=== PATIENT | female | born 1985 | race African-American/Black ===

== ENCOUNTER 2016-10-24 06:07 | Emergency (ER) | payer OTHER ==
[~2016-10-24] VITALS: Ht 162.6 cm; Wt 116.2 kg
[~2016-10-24 06:07] MED LIST: OMEP20TA39 PO
[2016-10-24 06:10] VITALS: BP 111/80; PULSE 87; RESP 18; TEMP 99.3; O2SAT 100
[2016-10-24] MEDS ORDERED: NORE-43 PO (06:30)
[2016-10-24] MEDS ORDERED: OMEP40CA2 PO (06:30)
[2016-10-24] MEDS ORDERED: SODIUM CHLOR 0.9% 1000 ML INJ 1,000 ML IV SCH (07:13)
[2016-10-24] MEDS ORDERED: LIDOCAINE VISCOUS 2% SOLN 15 ML UDC PO ONE (07:15)
[2016-10-24] MEDS ORDERED: ALUMINUM/MAGNESIUM/SIMETH 30 ML CUP PO ONE (07:15)
[2016-10-24] MEDS ORDERED: SODIUM CHLORIDE 0.9% FLUSH 5 ML FLUSH IVF PRN (07:15)
[2016-10-24] MEDS ORDERED: PANTOPRAZOLE SODIUM 40 MG VIAL IVP ONE (07:15)
[2016-10-24] MEDS ORDERED: DICYCLOMINE HCL 10 MG CAP PO ONE (07:15)
[2016-10-24 07:30] VITALS: O2SAT 100
[2016-10-24 07:34] LABS: BASOPHIL # 0.1 TH/MM3 (0-0.2); BASOPHIL % 1.1 % (0.0-2.0); EOSINOPHIL # 0.1 TH/MM3 (0-0.4); EOSINOPHIL % 1.3 % (0.0-4.0); HEMATOCRIT 38.8 % (35.0-46.0); LYMPH % 42.7 % (9.0-44.0); LYMPHOCYTE # 3.5 TH/MM3 (1.0-4.8); MEAN CELL VOLUME 82.1 FL (80.0-100.0); MEAN CORPUSCULAR HEMOGLOBIN 26.2 PG (27.0-34.0); MEAN CORPUSCULAR HGB CONC 31.9 % (32.0-36.0); NEUT % 47.9 % (16.0-70.0); PLATELET COUNT 341 TH/MM3 (150-450); RED BLOOD COUNT 4.73 MIL/MM3 (4.00-5.30); RED CELL DISTRIBUTION WIDTH 13.6 % (11.6-17.2); WHITE BLOOD COUNT 8.3 TH/MM3 (4.0-11.0)
[2016-10-24 07:34] LABS: BLOOD, URINE NEG (NEG); GLUCOSE,URINE NEG (NEG); KETONE, URINE NEG (NEG); NITRITE,URINE NEG (NEG)
[2016-10-24 07:36] LABS: HEMO FLAGS DIFF FINAL
--- NOTE | 2016-10-24 07:42 | PD ---
HPI Chief Complaint: Abdominal Pain Time Seen by Provider: 07:04 Travel History International Travel<30 days: No Contact w/Intl Traveler<30days: No Traveled to known affect area: No History of Present Illness HPI Patient is a 30 year old female complaining of abdominal pain that started yesterday. She has been here twice for the same thing and has seen her doctor. She was told by her PCP that it was GERD and she has been taking Omeprazole. She localizes the pain to the middle of her abdomen. She says the pain sometimes seems to go through to her back. She reports eating a hot dog yesterday around the time the pain started. She denies nausea or vomiting. She says her last bowel movement was Monday and was normal. She denies fever , but has had chills. PFSH Past Medical History Diminished Hearing: No Headaches: Yes Tetanus Vaccination: < 5 Years Influenza Vaccination: No ?: Not LMP: 10/12/16 Menopausal: No : 2 Para: 1 Past Surgical History Gynecologic Surgery: Yes (leep 2002) Social History Alcohol Use: No Tobacco Use: No Substance Use: No Allergies-Medications (Allergen,Severity, Reaction): Coded Allergies: No Known Allergies (Verified , 10/24/16) Reported Meds & Prescriptions Reported Meds & Active Scripts Active Macrobid (Nitrofurantoin Monoh/Nitrofur Macro) 100 Mg Cap 100 Mg PO BID 5 Days Reported Microgestin Fe 1/20 (Norethindrone-Ethinyl Estradiol-Fe) 1-20 Mg-Mcg Tab 1 Tab PO DAILY Omeprazole 40 Mg Cap 40 Mg PO DAILY Review of Systems Except as stated in HPI: all other systems reviewed are Neg General / Constitutional: Positive: Chills, No: Fever HENT: No: Headaches, Lightheadedness Cardiovascular: No: Chest Pain or Discomfort Respiratory: No: Shortness of Breath Gastrointestinal: Positive: Abdominal Pain, No: Nausea, Vomiting Genitourinary: No: Dysuria, Discharge Skin: No Rash, No Change in Pigmentation Neurologic: No: Weakness, Dizziness Physical Exam Narrative GENERAL: Awake and alert in no acute distress. SKIN: Warm and dry. HEAD: Atraumatic. Normocephalic. EYES: Pupils equal and round. No scleral icterus. . ENT: Mucous membranes pink and moist. NECK: Trachea midline. No JVD. CARDIOVASCULAR: Regular rate and rhythm. No murmur appreciated. RESPIRATORY: No accessory muscle use. Clear to auscultation. Breath sounds equal bilaterally. GASTROINTESTINAL: Abdomen soft, nondistended. Tender to palpation of the mid epigastric area. No rebound or guarding. No CVA tenderness. MUSCULOSKELETAL: No obvious deformities. No clubbing. No cyanosis. No edema. NEUROLOGICAL: Awake and alert. No obvious cranial nerve deficits. Motor grossly within normal limits. Normal speech. PSYCHIATRIC: Appropriate mood and affect; insight and judgment normal. Data Data Last Documented VS Vital Signs Date Time Temp Pulse Resp B/P Pulse Ox O2 Delivery O2 Flow Rate FiO2 10/24/16 09:00 67 14 115/67 100 Room Air 10/24/16 06:10 99.3 Orders Basic Metabolic Panel (Bmp) (10/24/16 07:13) Complete Blood Count With Diff (10/24/16 07:13) Lipase (10/24/16 07:13) Urinalysis - C+S If Indicated (10/24/16 07:13) Ua Includes Microscopic (10/24/16 07:13) Iv Access Insert/Monitor (10/24/16 07:13) Ecg Monitoring (10/24/16 07:13) Oximetry (10/24/16 07:13) Pantoprazole Inj (Protonix Inj) (10/24/16 07:15) Sodium Chlor 0.9% 1000 Ml Inj (Ns 1000 M (10/24/16 07:13) Sodium Chloride 0.9% Flush (Ns Flush) (10/24/16 07:15) Dicyclomine (Bentyl) (10/24/16 07:15) Al-Mag Hy-Si 40-40-4 Mg/Ml Liq (Mag-Al P (10/24/16 07:15) Lidocaine 2% Viscous (Xylocaine 2% Visco (10/24/16 07:15) Ed Urine Pregnancytest Poc (10/24/16 07:13) Hepatic Functional Panel (10/24/16 06:30) Urine Culture (10/24/16 06:20) Labs Laboratory Tests Test 10/24/16 10/24/16 06:20 06:30 Urine Collection Type CLEAN CATCH Urine Color YELLOW Urine Turbidity SLIGHT Urine pH 6.0 Urine Specific Lyman 1.027 Urine Protein NEG mg/dL Urine Glucose (UA) NEG mg/dL Urine Ketones NEG mg/dL Urine Occult Blood NEG Urine Nitrite NEG Urine Bilirubin NEG Urine Leukocyte Esterase TRACE Urine WBC 3-5 /hpf Urine Squamous Epithelial > 8 /hpf Cells Urine Bacteria MANY /hpf Microscopic Urinalysis Comment CULTURE INDICATED Urine Collection Time 06:20 White Blood Count 8.3 TH/MM3 Red Blood Count 4.73 MIL/MM3 Hemoglobin 12.4 GM/DL Hematocrit 38.8 % Mean Corpuscular Volume 82.1 FL Mean Corpuscular Hemoglobin 26.2 PG Mean Corpuscular Hemoglobin 31.9 % Concent Red Cell Distribution Width 13.6 % Platelet Count 341 TH/MM3 Mean Platelet Volume 9.2 FL Neutrophils (%) (Auto) 47.9 % Lymphocytes (%) (Auto) 42.7 % Monocytes (%) (Auto) 7.0 % Eosinophils (%) (Auto) 1.3 % Basophils (%) (Auto) 1.1 % Neutrophils # (Auto) 4.0 TH/MM3 Lymphocytes # (Auto) 3.5 TH/MM3 Monocytes # (Auto) 0.6 TH/MM3 Eosinophils # (Auto) 0.1 TH/MM3 Basophils # (Auto) 0.1 TH/MM3 CBC Comment DIFF FINAL Differential Comment Sodium Level 142 MEQ/L Potassium Level 4.2 MEQ/L Chloride Level 110 MEQ/L Carbon Dioxide Level 25.1 MEQ/L Anion Gap 7 MEQ/L Blood Urea Nitrogen 8 MG/DL Creatinine 0.84 MG/DL Estimat Glomerular Filtration 95 ML/MIN Rate Random Glucose 86 MG/DL Calcium Level 8.8 MG/DL Total Bilirubin 0.2 MG/DL Direct Bilirubin 0.1 MG/DL Indirect Bilirubin 0.1 MG/DL Aspartate Amino Transf 17 U/L (AST/SGOT) Alanine Aminotransferase 21 U/L (ALT/SGPT) Alkaline Phosphatase 89 U/L Total Protein 7.6 GM/DL Albumin 3.3 GM/DL Lipase 123 U/L [facility] Medical Decision Making Medical Screen Exam Complete: Yes Emergency Medical Condition: Yes Medical Record Reviewed: Yes Differential Diagnosis GERD versus pancreatitis versus cholecystitis versus cholelithiasis Narrative Course Patient is a 30-year-old female comes in complaining of abdominal pain. Exam shows soft abdomen, mildly tender in the epigastric area. IV established, labs sent. Labs show no acute abnormalities. Urinalysis is concerning for UTI, will be treated with antibiotics. Patient given GI cocktail, Bentyl. She reports her stomach still feels "sour." However, she feels like she is ready to go home. Patient advised follow-up with her doctor and see a sew on operator. Advised to return to the ED as needed for any worsening symptoms. Advised to avoid spicy foods, caffeine, smoking. Diagnosis Primary Impression: GERD (gastroesophageal reflux disease) Qualified Code: K21.9 - Gastroesophageal reflux disease without esophagitis Additional Impression: UTI (urinary tract infection) Qualified Code: N30.00 - Acute cystitis without hematuria Patient Instructions: Gastroesophageal Reflux Disease (ED), General Instructions, Urinary Tract Infection in Women (ED) Additional Instructions: Follow up with your doctor. Follow up with gastroenterology. Return to the ED as needed for any worsening symptoms. Scripts Nitrofurantoin Monohydrate Macrocrystals (Macrobid)100 Mg [id number] Mg PO BID 5 Days Ref 0 Prov:Madeleine Horowitz MD 10/24/16 Disposition: 01 DISCHARGE HOME Condition: Stable Madeleine Horowitz MD Oct 24, 2016 07:42 Madeleine Horowitz MD Oct 24, 2016 07:42
[2016-10-24 07:43] LABS: POTASSIUM 4.2 MEQ/L (3.5-5.1)
[2016-10-24 07:43] LABS: BACTERIA, URINE MANY /hpf; COMMENT (UR) CULTURE INDICATED; CULTURE IF INDICATED CULTURE INDICATED; METHOD OF COLLECTION CLEAN CATCH; SQUAMOUS EPITHELIAL CELL URINE > 8 /hpf (0-5); URINE COLOR YELLOW (YELLW/STRAW)
[2016-10-24 07:47] LABS: BICARBONATE 25.1 MEQ/L (21.0-32.0)
[2016-10-24 07:51] LABS: INDIRECT BILIRUBIN 0.1 MG/DL (0.0-0.8); TOTAL BILIRUBIN ADULT 0.2 MG/DL (0.2-1.0)
[2016-10-24] MEDS ORDERED: MACR100C2 PO (08:53)
[2016-10-24 09:00] VITALS: BP 115/67; PULSE 67; RESP 14; O2SAT 100
== END 2016-10-24 09:00 | disposition home or self-care (01) ==
LOC: PHED 06:07
DX: K21.9 Gastro-esophageal reflux disease without esophagitis (principal); N30.00 Acute cystitis without hematuria
CPT/HCPCS: 80048; 80076; 81001; 83690; 84703; 85025; 87086; 96361; 96374; 99284; C9113; J7030

== ENCOUNTER 2016-10-28 01:49 | Emergency (ER) | payer OTHER ==
[~2016-10-28] VITALS: Ht 157.5 cm; Wt 116.5 kg
[~2016-10-28 01:49] MED LIST changes: +MACR100C2 PO; +NORE-43 PO; -OMEP20TA39 PO; +OMEP40CA2 PO
[2016-10-28 01:53] VITALS: BP 135/92; PULSE 90; RESP 16; TEMP 99.2; O2SAT 97
[2016-10-28] MEDS ORDERED: AMOX500C PO (02:07)
--- NOTE | 2016-10-28 02:07 | PD ---
HPI Chief Complaint: ENT Complaint Time Seen by Provider: 02:03 Travel History International Travel<30 days: No Contact w/Intl Traveler<30days: No Traveled to known affect area: No History of Present Illness HPI 30-year-old female presents to the emergency department by private transportation for complaint of sore throat with difficulty swallowing and breathing. Patient complains of hoarseness that she's had since Monday. Patient has had sore throat since Monday. Patient was seen in the emergency department on Monday for epigastric pain and diagnosed with reflux esophagitis. Patient saw her primary care provider on Monday and started on amoxicillin. Patient denies fever or chills. No cough. Patient is been told that she needs to have her tonsils removed. Patient has had sinus pressure and drainage. Patient states that she was awakened from sleep with throat pain and feeling like there is something interfering with her ability to swallow. Patient denies any personal history of asthma or reactive airways disease. PFSH Past Medical History Narrative Medical headache, leep; no tobacco use; nursing notes reviewed Diminished Hearing: No Headaches: Yes LMP: 10/10/16 Menopausal: No : 2 Para: 1 Past Surgical History Gynecologic Surgery: Yes (leep 2001) Social History Alcohol Use: No Tobacco Use: No Substance Use: No Allergies-Medications (Allergen,Severity, Reaction): Coded Allergies: No Known Allergies (Verified , 10/28/16) Reported Meds & Prescriptions Reported Meds & Active Scripts Active Macrobid (Nitrofurantoin Monoh/Nitrofur Macro) 100 Mg Cap 100 Mg PO BID 5 Days Reported Amoxicillin 500 Mg Cap 500 Mg PO Q12HR Microgestin Fe 10/28 (Norethindrone-Ethinyl Estradiol-Fe) 1-20 Mg-Mcg Tab 1 Tab PO DAILY Omeprazole 40 Mg Cap 40 Mg PO DAILY Review of Systems Except as stated in HPI: all other systems reviewed are Neg General / Constitutional: No: Fever, Chills HENT: Positive: Sore Throat, No: Headaches, Congestion, Neck Pain, Masses Cardiovascular: No: Chest Pain or Discomfort Respiratory: No: Cough Gastrointestinal: No: Nausea, Vomiting Genitourinary: No: Flank Pain Musculoskeletal: No: Myalgias, Arthralgias Skin: No Rash Endocrine: No: Polyuria Hematologic/Lymphatic: No: Lymph Node Enlargement Physical Exam Narrative GENERAL: Well-developed well-nourished female in no acute distress no respiratory distress no stridor mild hoarseness SKIN: Warm and dry. HEAD: Normocephalic. EYES: No scleral icterus. No injection or drainage. ENT: Mucous membranes moist airway is patent no angioedema no soft palate swelling uvula is midline no oral lesions no gingival ulceration. NECK: Supple, trachea midline. No JVD or lymphadenopathy. No meningismus no nuchal rigidity. CARDIOVASCULAR: Regular rate and rhythm without murmurs, gallops, or rubs. RESPIRATORY: Breath sounds equal bilaterally. No accessory muscle use. GASTROINTESTINAL: Abdomen soft, non-tender, nondistended. MUSCULOSKELETAL: No cyanosis, or edema. BACK: Nontender without obvious deformity. No CVA tenderness. Data Data Last Documented VS Vital Signs Date Time Temp Pulse Resp B/P Pulse Ox O2 Delivery O2 Flow Rate FiO2 10/28/16 03:44 98.5 73 18 132/83 98 Room Air Orders Basic Metabolic Panel (Bmp) (10/28/16 02:03) Complete Blood Count With Diff (10/28/16 02:03) Iv Access Insert/Monitor (10/28/16 02:03) Dexamethasone Inj (Decadron Inj) (10/28/16 02:15) Sodium Chloride 0.9% Flush (Ns Flush) (10/28/16 02:15) Ondansetron Inj (Zofran Inj) (10/28/16 02:15) Group A Rapid Strep Screen (10/28/16 02:07) Strep Culture (Group A) (10/28/16 02:08) Ct Soft Tiss Neck W Iv Cont (10/28/16 ) Iohexol 350 Inj (Omnipaque 350 Inj) (10/28/16 03:47) Ketorolac Inj (Toradol Inj) (10/28/16 04:00) Labs Laboratory Tests Test 10/28/16 02:14 White Blood Count 8.7 TH/MM3 Red Blood Count 4.46 MIL/MM3 Hemoglobin 11.9 GM/DL Hematocrit 36.3 % Mean Corpuscular Volume 81.3 FL Mean Corpuscular Hemoglobin 26.7 PG Mean Corpuscular Hemoglobin 32.9 % Concent Red Cell Distribution Width 13.3 % Platelet Count 330 TH/MM3 Mean Platelet Volume 8.7 FL Neutrophils (%) (Auto) 49.1 % Lymphocytes (%) (Auto) 41.2 % Monocytes (%) (Auto) 6.2 % Eosinophils (%) (Auto) 2.2 % Basophils (%) (Auto) 1.3 % Neutrophils # (Auto) 4.3 TH/MM3 Lymphocytes # (Auto) 3.6 TH/MM3 Monocytes # (Auto) 0.5 TH/MM3 Eosinophils # (Auto) 0.2 TH/MM3 Basophils # (Auto) 0.1 TH/MM3 CBC Comment DIFF FINAL Differential Comment Sodium Level 146 MEQ/L Potassium Level 3.7 MEQ/L Chloride Level 111 MEQ/L Carbon Dioxide Level 23.5 MEQ/L Anion Gap 12 MEQ/L Blood Urea Nitrogen 8 MG/DL Creatinine 0.84 MG/DL Estimat Glomerular Filtration 95 ML/MIN Rate Random Glucose 100 MG/DL Calcium Level 8.9 MG/DL MDM Medical Decision Making Medical Screen Exam Complete: Yes Emergency Medical Condition: Yes Medical Record Reviewed: Yes Interpretation(s) cbc: wnl metabolic panel: mild hypernatremia Rapid strep antigen: Negative Last Impressions Neck CT 10/28/16 0000 Signed Impressions: Service Date/Time: Friday, October 28, 2016 03:33 - CONCLUSION: Unremarkable study. K. Chavez Collins MD Differential Diagnosis Pharyngitis, laryngitis, tonsillitis, peritonsillar abscess, retropharyngeal abscess, Gutierrez's angina, sialadenitis, mass allergic reaction; no angioedema or anaphylaxis Narrative Course Patient placed on cardiac technologist IV access obtained specimens collected and sent for resulting patient administered Decadron 10 mg IV Lab values normal range patient continues complaining of throat fullness and sent for CT soft tissue of the neck with IV contrast to evaluate for abscess CT identifies no acute abnormality no abscess no mass Patient clinically improved and stable for outpatient management Diagnosis Primary Impression: Pharyngitis Referrals: Primary Care Physician call for appointment Patient Instructions: General Instructions Departure Forms: Tests/Procedures, Work Release Special Instructions: no work x 1 day Additional Instructions: Increase fluid hydration Take acetaminophen every 4 hours as needed for fever 100.4F or greater Complete course of antibiotic as presently prescribed Use cool mist vaporizer at bedside Take pain medication as prescribed as needed Take ibuprofen 800 mg as often as every 8 hours as needed for fever 100.4F or greater or for pain associated with inflammation this may be started tomorrow Follow-up with primary care provider return to the emergency department for any concerns or change in condition No work times one day Med/Other Pt SpecificInfo: Prescription(s) given Scripts Hydrocodone-Acetaminophen (Lortab)5-325 Mg Tab1 Tab PO Q6H PRN (PAIN) #10 TAB Ref 0 Prov:Tg Power MD 10/28/16 Disposition: 01 DISCHARGE HOME Condition: Stable Tg Power MD Oct 28, 2016 02:07
[2016-10-28] MEDS ORDERED: ONDANSETRON HCL 4 MG/2 ML VIAL IV PUSH ONE (02:15)
[2016-10-28] MEDS ORDERED: SODIUM CHLORIDE 0.9% FLUSH 5 ML FLUSH IVF PRN (02:15)
[2016-10-28] MEDS ORDERED: DEXAMETHASONE SOD PHOS 4 MG/ML VIAL IV ONE (02:15)
[2016-10-28 02:27] LABS: AUTOMATED NEUTROPHIL # 4.3 TH/MM3 (1.8-7.7); BASOPHIL # 0.1 TH/MM3 (0-0.2); BASOPHIL % 1.3 % (0.0-2.0); EOSINOPHIL # 0.2 TH/MM3 (0-0.4); EOSINOPHIL % 2.2 % (0.0-4.0); HEMATOCRIT 36.3 % (35.0-46.0); HEMO FLAGS DIFF FINAL; LYMPH % 41.2 % (9.0-44.0); LYMPHOCYTE # 3.6 TH/MM3 (1.0-4.8); MEAN CELL VOLUME 81.3 FL (80.0-100.0); MEAN CORPUSCULAR HEMOGLOBIN 26.7 PG (27.0-34.0); MEAN CORPUSCULAR HGB CONC 32.9 % (32.0-36.0); MONO % 6.2 % (0.0-8.0); NEUT % 49.1 % (16.0-70.0); PLATELET COUNT 330 TH/MM3 (150-450); RED BLOOD COUNT 4.46 MIL/MM3 (4.00-5.30); RED CELL DISTRIBUTION WIDTH 13.3 % (11.6-17.2); WHITE BLOOD COUNT 8.7 TH/MM3 (4.0-11.0)
[2016-10-28 02:32] LABS: POTASSIUM 3.7 MEQ/L (3.5-5.1)
[2016-10-28 02:35] LABS: BICARBONATE 23.5 MEQ/L (21.0-32.0)
[2016-10-28 03:44] VITALS: BP 132/83; PULSE 73; RESP 18; TEMP 98.5; O2SAT 98
[2016-10-28] MEDS ORDERED: IOHEXOL 350 MG/ML 10 ML VIAL (for RAD DIAG) IV ONE (03:47)
--- NOTE | 2016-10-28 03:56 | RADHPO ---
EXAM DATE/TIME: 10/28/2016 03:33 [facility] COMPARISON: No previous studies available for comparison. INDICATIONS : Evaluate for abscess. Sore throat. Difficulty swallowing. IV CONTRAST: 75 cc Omnipaque 350 (iohexol) IV RADIATION DOSE: 13.88 CTDIvol (mGy) MEDICAL HISTORY : None SURGICAL HISTORY : None. ENCOUNTER: Initial ACUITY: 1 day PAIN SCALE: 9/10 LOCATION: Bilateral neck TECHNIQUE: Volumetric scanning of the neck was performed. Using automated exposure control and adjustment of th e mA and/or kV according to patient size, radiation dose was kept as low as reasonably achievable to obtain optimal diagnostic quality images. FINDINGS: There is no evidence for any appreciable pathological adenopathy in the patient's neck. The parotid glands, submandibular glands, thyroid glands appear intact. The visceral compartment is grossly inta ct without infiltrating mass. The visualized sinuses are clear. No definite abscess is identified. CONCLUSION: Unremarkable study. Baylee Collins MD on October 28, 2016 at 3:52 Board Certified Radiologist. This report was verified electronically.
[2016-10-28] MEDS ORDERED: KETOROLAC TROMETHAMINE 30 MG/ML (IVP) VIAL IV PUSH ONE (04:00)
[2016-10-28] MEDS ORDERED: HYDR-3533 PO (04:17)
== END 2016-10-28 04:27 | disposition home or self-care (01) ==
LOC: PHED 01:49
DX: J02.9 Acute pharyngitis, unspecified (principal)
CPT/HCPCS: 70491; 80048; 85025; 87081; 87880; 96374; 96375; 99284; J1100; J1885; J2405; Q9967